=== PATIENT | female | born 1990 | race Caucasian/White ===

== ENCOUNTER 2020-11-23 17:33 | Emergency (ER) | payer SELFPAY ==
[~2020-11-23] VITALS: Ht 170.2 cm; Wt 61.2 kg
[2020-11-23] MEDS ORDERED: DOCUSATE SODIUM 100 MG/10 ML LIQUID UDC NG ONE (18:00)
[2020-11-23] MEDS ORDERED: DOCUSATE SODIUM 100 MG/10 ML LIQUID UDC ONE (18:16)
[2020-11-23] MEDS ORDERED: AMOX-430 PO (19:07)
[2020-11-23] MEDS ORDERED: CARB15DR63 OT (19:08)
[2020-11-23 19:10] VITALS: BP 120/69
--- NOTE | 2020-11-23 19:10 | NUR ---
Patient discharged to home in stable condition. Written and verbal after care instructions given. Patient verbalizes understanding of instructions. Stressed follow up or return to ER for worsening s/s.
== END 2020-11-23 19:10 | disposition home or self-care (01) ==
LOC: ER 17:35
DX: H92.02 Otalgia, left ear (principal); T16.2XXA Foreign body in left ear, initial encounter; X58.XXXA Exposure to other specified factors, initial encounter; Y92.89 Other specified places as the place of occurrence of the external cause
CPT/HCPCS: A4217; A4663